=== PATIENT | female | born 1990 | race Caucasian/White ===

== ENCOUNTER 2021-11-07 04:07 | Emergency (ER) | payer SELFPAY ==
[2021-11-07] MEDS ORDERED: KETOROLAC 30 MG/ML INJ ONE (04:48)
--- NOTE | 2021-11-07 06:39 | ER ---
Nurse's Notes [facility] Name: Heather Ramirez Age: 31 yrs Sex: Female : 1990 Arrival Date: 11/07/2021 Time: 04:08 Bed 16 Private MD: Diagnosis: Contusion of right foot Presentation: 11/07 04:30 Chief complaint: Patient states: I jumped into a pool yesterday and landed on my foot kd3 in the shallow water. the right side of my foot hit the bottom. I went home and went to bed and woke up in a lot of pain. Coronavirus screen: Vaccine status: Patient reports being unvaccinated. Ebola Screen: No symptoms or risks identified at this time. Initial Sepsis Screen: Does the patient meet any 2 criteria? No. Patient's initial sepsis screen is negative. Does the patient have a suspected source of infection? No. Patient's initial sepsis screen is negative. Risk Assessment: Do you want to hurt yourself or someone else? Patient reports no desire to harm self or others. Onset of symptoms was November 07, 2021. 04:30 Method Of Arrival: Ambulatory kd3 04:30 Acuity: YENNY 3 kd3 Triage Assessment: 04:32 General: Appears uncomfortable, Behavior is calm, cooperative. Pain: Complains of pain kd3 in lateral side of right foot and dorsum of right foot. Musculoskeletal: Reports pain in right foot. Injury Description: Bruise sustained to lateral side of right foot and dorsum of right foot. 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 - Social history:: Smoking status: Patient denies any tobacco usage or history of. Screenin:33 Abuse screen: Denies threats or abuse. Nutritional screening: No deficits noted. ke1 Tuberculosis screening: No symptoms or risk factors identified. Fall Risk No fall in past 12 months (0 pts). No secondary diagnosis (0 pts). No IV (0 pts). Ambulatory Aid- None/Bed Rest/Nurse Assist (0 pts). Gait- Normal/Bed Rest/Wheelchair (0 pts) Mental Status- Oriented to own ability (0 pts). Total Mcneal Fall Scale indicates No Risk (0-24 pts). Assessment: 04:44 Pain: Complains of pain in right foot Pain currently is 10 out of 10 on a pain scale. ke1 05:26 Reassessment: Patient states feeling better. Patient states symptoms have improved. ke1 06:24 Reassessment: Patient states feeling better. Patient states symptoms have improved. ke1 Vital Signs: 04:30 BP 119 / 96; Pulse 98; Resp 16; Temp 98.2(O); Pulse Ox 100% on R/A; Weight 66.68 kg; kd3 Height 5 ft. 3 in. (160.02 cm); Pain 10/10; 05:14 Pain 1/10; ke1 05:25 BP 121 / 88; Pulse 72; Resp 19; Pulse Ox 100% on R/A; ke1 04:30 Body Mass Index 26.04 (66.68 kg, 160.02 cm) kd3 ED Course: 04:08 Patient arrived in ED. ja2 04:18 Sania Duarte MD is Attending Physician. sd2 04:21 Teo Herzog, PALOO is Primary Nurse. ke1 04:32 Triage completed. kd3 04:32 Arm band placed on right wrist. kd3 04:33 Patient has correct armband on for positive identification. Bed in low position. Call ke1 light in reach. Side rails up X 1. 05:39 XRAY Foot RIGHT 3 View In Process Unspecified. EDMS 06:45 No provider procedures requiring assistance completed. Patient did not have IV access ke1 during this emergency room visit. Administered Medications: 04:44 Drug: Ketorolac 30 mg Route: IM; Site: left deltoid; ke1 05:14 Follow up: Pain 1/10 Adult; Response: Pain is decreased ke1 Medication: 04:33 VIS not applicable for this client. kd3 Outcome: 06:38 Discharge ordered by . sd2 06:45 Discharged to home ambulatory, with crutches, own crutches ke1 06:45 Condition: good 06:45 Discharge instructions given to patient. 06:46 Patient left the ED. ke1 Signatures: Dispatcher [employer] EDMS Tammy Patterson Kyli, RN RN kd3 Teo Herzog, RN RN ke1 Sania Duarte MD MD sd2
--- NOTE | 2021-11-07 06:39 | EDPHYS ---
Physician Documentation [facility] Name: Heather Ramirez Age: 31 yrs Sex: Female : 1990 Arrival Date: 11/07/2021 Time: 04:08 Bed 16 Private MD: ED Physician Sania Duarte HPI: 11/07 04:33 This 31 yrs old Female presents to ER via Ambulatory with complaints of Foot Injury. sd2 04:33 31 yo F presents with CC of R foot pain. Reports initial injury happened yesterday when sd2 she was jumping into a shallow pool doing a cannonball. Reports she was able to walk on it initially and pain was controlled and she was able to sleep until about 3 AM when the pain returned and became severe. She took a home Tramadol just prior to coming. Denies any other areas of injury or pain at this time.. 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 - Social history:: Smoking status: Patient denies any tobacco usage or history of. ROS: 04:33 MS/extremity: Negative for erythema, laceration, paresthesias, swelling. sd2 04:33 Skin: Negative for injury, rash, and discoloration. Exam: 04:33 Constitutional: This is a well developed, well nourished patient who is awake, alert, sd2 and in no acute distress. Head/Face: Normocephalic, atraumatic. Eyes: EOMI, normal conjunctiva bilaterally Skin: Warm, dry with normal turgor. Normal color with no rashes, no lesions, and no evidence of cellulitis. MS/ Extremity: TTP of R lateral foot and R medial sole of the foot with no appreciable swelling, 2+ distal pusles, sensation grossly intact Vital Signs: 04:30 BP 119 / 96; Pulse 98; Resp 16; Temp 98.2(O); Pulse Ox 100% on R/A; Weight 66.68 kg; kd3 Height 5 ft. 3 in. (160.02 cm); Pain 10/10; 05:14 Pain 1/10; ke1 05:25 BP 121 / 88; Pulse 72; Resp 19; Pulse Ox 100% on R/A; ke1 04:30 Body Mass Index 26.04 (66.68 kg, 160.02 cm) kd3 MDM: 04:33 Patient medically screened. sd2 04:33 Differential diagnosis: fracture, sprain, foreign body, penetrating trauma, arthritis, sd2 gout, cellulitis, among others. Data reviewed: vital signs, nurses notes. 06:37 Data reviewed: radiologic studies. Counseling: I had a detailed discussion with the sd2 patient and/or guardian regarding: the historical points, exam findings, and any diagnostic results supporting the discharge/admit diagnosis, radiology results, the need for outpatient follow up, to return to the emergency department if symptoms worsen or persist or if there are any questions or concerns that arise at home. Medical screen evaluation completed. EMTALA emergency medical condition absent. ED course: Imaging reviewed. No acute bony injuries noted. Pt advised of results and continued supportive care. Verbalizes understanding of discharge plan and strict return precautions.. 11/07 04:33 Order name: XRAY Foot RIGHT 3 View sd2 11/07 04:33 Order name: Ice pack; Complete Time: 04:45 sd2 Administered Medications: 04:44 Drug: Ketorolac 30 mg Route: IM; Site: left deltoid; ke1 05:14 Follow up: Pain 1/10 Adult; Response: Pain is decreased ke1 Disposition Summary: 11/07/21 06:38 Discharge Ordered Location: Home sd2 Problem: new sd2 Symptoms: have improved sd2 Condition: Stable sd2 Diagnosis - Contusion of right foot sd2 Followup: sd2 - With: Private Physician - When: 2 - 3 days - Reason: Recheck today's complaints, Continuance of care, Re-evaluation by your physician Discharge Instructions: - Discharge Summary Sheet sd2 - Foot Contusion sd2 - Foot Sprain sd2 - Foot Pain sd2 Forms: - Medication Reconciliation Form sd2 - Thank You Letter sd2 - Antibiotic Education sd2 - Prescription Opioid Use sd2 Signatures: Dispatcher [employer] Berkley Howard RN RN kd3 Teo Herzog RN RN ke1 Felicia, Sania, MD MD sd2
--- NOTE | 2021-11-08 15:23 | RAD REPORT ---
EXAM DESCRIPTION: RAD - Foot Right 3 View - 11/07/2021 5:37 am CLINICAL HISTORY: The patient is 31 years old and is Female; PAIN TECHNIQUE: Three views of the right foot. COMPARISON: No relevant prior studies available. FINDINGS: Bones/joints: Unremarkable. No acute fracture. No dislocation. Soft tissues: Unremarkable. No radiopaque foreign body. IMPRESSION: No acute osseous findings. Electronically signed by: Sania Fox MD 11/07/2021 6:14 AM CDT Due to temporary technical issues with the PACS/Fluency reporting system, reports are being signed by the in house radiologists without review as a courtesy to insure prompt reporting. The interpreting radiologist is fully responsible for the content of the report.
[2021-11-08 15:58] VITALS: TEMP 98.2; O2SAT 100
[2021-11-08 16:13] VITALS: BP 121/88
== END 2021-11-07 06:46 | disposition home or self-care (01) ==
LOC: ER 04:07
DX: S90.31XA Contusion of right foot, initial encounter (principal)
CPT/HCPCS: 96372; 99283